=== PATIENT | female | born 1965 | race Caucasian/White ===

== ENCOUNTER 2016-12-21 18:14 | Emergency (ER) | payer MEDICARE, MEDICAID ==
[~2016-12-21 18:14] MED LIST: ADULT LOW DOSE81 MG PO; ADVIL200 M1 PO; AFRIN30 ML NS; ALBUTEROL INH 0.3 ML AERO NEB; ALBUTEROL SULF8.5 GM IH; ALBUTEROL17 GM INH; AMOX TR-K CLV 81 TAB PO; AMOXICILLIN500 M PO; AMOXICILLIN500 M1 PO; AMOXICILLIN500 MG PO; AMOXICILLIN875 M1 PO; ANALGESIC BALM30 G1 EXT; ANTIVERT25 M1 PO; ANTIVERT25 MG PO; ASCRIPTIN 325325 MG PO; ASPIR 8181 MG; ASPIRIN325 MG PO; ATENOLOL50 M1 PO; AUGMENTIN 875-11 TAB; BACLOFEN10 M1 PO; BENTYL20 MG PO; BYSTOLIC10 MG; BYSTOLIC10 MG PO; CARBIDOPA/LEVO 21 EA PO; CATAPRES0.1 MG; CATAPRES0.1 MG PO; CATAPRES0.2 MG PO; CIPRO500 M1 PO; CLINDAMYCIN HC300 MG PO; CLONAZEPAM0.5 M1 NG; CLONIDINE HCL0.1 MG PO; COMBIVENT INH14.7 GM IH; DELTASONE10 MG PO; DEXTROSE 50% IV; DIOVAN320 MG; DIOVAN320 MG PO; DUONEB 2.5-0.5MG3 M1 AERO NEB; FLONASE ALLERG9.9 ML; FLONASE16 G1; FLONASE16 GM; FLONASE16 GM NS; FLUOXETINE HCL20 M2 PO; GLUCAGEN1 MG/VIAL IJ; GLUCOSE4 G PO; H; HUMALOG100 U/ML SQ; HYDROCHLOROTHIA25 M1 PO; HYDROCHLOROTHIA25 MG; HYDROCHLOROTHIA25 MG NG; HYDROCHLOROTHIA25 MG PO; HYDROCODON-ACE1 EAC7 PO; LANTUS100 U/ML SC; LEVAQUIN250 M1 PO; LEVEMIR100 U/M SQ; LEVOCETIRIZINE D5 M1 PO; LIPITOR20 MG; LIPITOR20 MG PO; LISINOPRIL10 M1 PO; LISINOPRIL20 MG PO; LISINOPRIL5 MG PO; LOPRESSOR50 MG; LORTAB1 ML PEG; LOVENOX40 MG/0.4 SQ; LYRICA; LYRICA50 MG NG; LYRICA50 MG/CAP PO; MECLIZINE HCL25 M3 PO; MILK OF MA400 MG/5 M NG; MOTRIN600 MG PO; MUCINEX600 MG PO; MYCOSTATIN100 K U/ML PO; MYCOSTATIN15 GM TP; NASONEX17 GM NS; NIASPAN500 MG; NIASPAN500 MG PO; NORCO 5-325 TA1 EACH PO; NORCO 5/325 TAB1 TAB PO; NORCO 5/3251 TA1 NG; NORVASC10 MG; NORVASC10 MG PO; NORVASC5 MG; NOVOLOG100 U/M SQ; NYSTATIN10 GM TOP; NYSTATIN60 ML SSP; OMNICEF300 MG; PHENERGAN W/CO120 ML PO; PREDNISONE10 MG PO; PROMETHAZINE-C118 ML PO; PROTONIX40 M1 PO; PROZAC20 M1 PO; PROZAC20 M2 NG; REQUIP0.5 M1 PO; RESTLESS LEG MED; RESTORIL7.5 MG/CAP PO; ROPINIROLE HCL0.5 M1 PO; SINEMET 25-1001 EAC1 PO; SODIUM CHLORIDE10 M1 FL; STOP THE FOLLOWING:; TESSALON PERLE100 MG PO; TUSSIONEX PENN473 ML PO; TYLENOL EXTRA500 M1 PO; VICODIN 5/500 T1 TAB PO; XANAX0.25 MG PO; ZEGERID 40 MG C1 CAP PO; ZITHROMAX250 M1 PO; ZITHROMAX250 MG PO; ZITHROMAX250MG Z-PAK PO; ZOCOR40 MG NG; ZOFRAN ODT4 MG/UDTAB PO; ZOFRAN2 MG/1 ML IV; ZOFRAN4 M2; [UNRECOGNIZED DRUG - REMARK]
[2017-01-09] MEDS ORDERED: ASPIRIN325 M3 PO (10:39)
[2017-01-09] MEDS ORDERED: TENORMIN50 M1 PO (10:40)
[2017-01-09] MEDS ORDERED: CATAPRES0.1 M1 PO (10:41)
[2017-01-09] MEDS ORDERED: PROZAC20 M3 PO (10:41)
[2017-01-09] MEDS ORDERED: PROTONIX40 M2 PO (10:43)
[2017-01-09] MEDS ORDERED: CPAP (10:44)
== END 2016-12-21 19:39 ==
LOC: EDMED 18:14
DX: T78.49XA Other allergy, initial encounter (principal); I10 Essential (primary) hypertension; M19.90 Unspecified osteoarthritis, unspecified site; G20 Parkinson's disease; Z86.73 Personal history of transient ischemic attack (TIA), and cerebral infarction without residual deficits; Z95.0 Presence of cardiac pacemaker; Z79.82 Long term (current) use of aspirin; Z79.899 Other long term (current) drug therapy

== ENCOUNTER 2017-01-13 10:16 | Day surgery (SDC) | payer MEDICARE, MEDICAID ==
[~2017-01-13 10:16] MED LIST changes: +ASPIRIN325 M3 PO; +CATAPRES0.1 M1 PO; +CPAP; +PROTONIX40 M2 PO; +PROZAC20 M3 PO; +TENORMIN50 M1 PO
[2017-01-13 11:05] LABS: BASO % 0.3 % (0-2); EOS % 3.5 % (0-7); EOSINOPHIL ABSOLUTE COUNT 0.3 tho/cmm (0.0-0.7); HCT-HEMATOCRIT 41.8 % (34.0-49.0); HGB-HEMOGLOBIN 13.6 gm/dl (12.0-15.5); IMMATURE GRANULOCYTES ABSOLUTE 0.01 tho/cmm (0-0.03); IMMATURE GRANULOCYTES PERCENT 0.1 % (0-0.3); LYMPH % 21.1 % (20-45); LYMPH ABSOLUTE COUNT 1.9 tho/cmm (0.8-4.5); MCH (MEAN CORPUSCULAR HGB) 28.1 pg (28.0-32.0); MCHC MEAN CORPUSCULAR HGB CONC 32.5 % (32.0-36.0); MCV (MEAN CELL VOLUME) 86.4 fl (82.0-96.0); MONO % 5.6 % (0-12); MONOCYTE ABSOLUTE COUNT 0.5 tho/cmm (0.0-1.2); NEUTROPHIL ABSOLUTE COUNT 6.4 tho/cmm (1.6-8.0); NEUTROPHIL-AUTOMATED 6.4 tho/cmm (1.6-8.0); NEUTROPHILS % 69.4 % (40-80); PLATELET COUNT 254 tho/cmm (150-450); RED BLOOD COUNT 4.84 mil/cmm (4.00-5.20); RED CELL DISTRIBUTION WIDTH 14.6 % (12.4-16.4); WHITE BLOOD COUNT 9.2 tho/cmm (4.0-10.0)
[2017-01-13 11:21] LABS: ALB/GLOB RATIO 0.8 (0.8-2.0); ALBUMIN 3.5 g/dl (3.5-5.0); ALKALINE PHOSPHATASE 88 U/L (33-138); ALT/SGPT 20 U/L (12-78); ANION GAP 12 mmol/L (0-20); AST/SGOT 22 U/L (10-40); BILIRUBIN,TOTAL 1.2 mg/dl (0-1.5); BLOOD UREA NITROGEN 18 mg/dl (6-24); CALCIUM 8.3 mg/dl (8.5-10.5); CARBON DIOXIDE-VENOUS 27 mmol/L (22-32); CHLORIDE 105 mmol/l (96-110); CREATININE 0.92 mg/dl (0.50-1.10); GLUCOSE 92 mg/dL (70-110); SODIUM 140 mmol/L (135-145); eGFR VALUE FOR BLACK 82 mL/Min
== END 2017-01-13 18:17 ==
LOC: SRG 10:16 → SHSB 10:17 → ORE 11:54 → PACU 13:05 → SHSB 13:45
PROVIDERS: Otolaryngology
PROC: 09SM0ZZ Reposition Nasal Septum, Open Approach (ICD-10-PCS; principal; 2017-01-13)
PROC: 095L3ZZ Destruction of Nasal Turbinate, Percutaneous Approach (ICD-10-PCS; 2017-01-13)
DX: J34.2 Deviated nasal septum (principal); J34.3 Hypertrophy of nasal turbinates; I10 Essential (primary) hypertension; F41.9 Anxiety disorder, unspecified; F32.9 Major depressive disorder, single episode, unspecified; K21.9 Gastro-esophageal reflux disease without esophagitis; M79.7 Fibromyalgia; G20 Parkinson's disease; J45.909 Unspecified asthma, uncomplicated; Z86.73 Personal history of transient ischemic attack (TIA), and cerebral infarction without residual deficits; Z88.1 Allergy status to other antibiotic agents; Z88.8 Allergy status to other drugs, medicaments and biological substances; Z98.51 Tubal ligation status; Z90.49 Acquired absence of other specified parts of digestive tract; Z79.82 Long term (current) use of aspirin; Z79.899 Other long term (current) drug therapy; Z98.890 Other specified postprocedural states
CPT/HCPCS: J0171; J2405; J3010

== ENCOUNTER 2017-03-02 20:32 | Emergency (ER) | payer MEDICARE, MEDICAID ==
[2017-03-02] MEDS ORDERED: NORCO 5/3251 TAB PO (22:08)
== END 2017-03-02 22:21 ==
LOC: EDMED 20:32
DX: S93.402A Sprain of unspecified ligament of left ankle, initial encounter (principal); I12.9 Hypertensive chronic kidney disease with stage 1 through stage 4 chronic kidney disease, or unspecified chronic kidney disease; N18.9 Chronic kidney disease, unspecified; K21.9 Gastro-esophageal reflux disease without esophagitis; G47.33 Obstructive sleep apnea (adult) (pediatric); Z79.899 Other long term (current) drug therapy; X50.1XXA Overexertion from prolonged static or awkward postures, initial encounter